=== PATIENT | male | born 1960 ===

== ENCOUNTER 2023-09-07 14:25 | Outpatient (CLI) | payer OTHER, SELFPAY ==
[2023-09-07 15:23] LABS: Free T4 Free Thyroxine 1.41 ng/dL (0.82-1.77)
== END 2023-09-07 14:26 | disposition home or self-care (01) ==
LOC: LAB 14:31
PROVIDERS: Visit Provider Nurse Practitioner Family
DX: Z01.89 Encounter for other specified special examinations (principal)
CPT/HCPCS: 36415; 84439; 84443